=== PATIENT | female | born 2000 | race Caucasian/White ===

== ENCOUNTER 2019-02-20 12:57 | Emergency (ER) | payer MEDICAID ==
[~2019-02-20] VITALS: Ht 162.6 cm; Wt 113.6 kg
[2019-02-20 13:02] VITALS: TEMP 96.4
[2019-02-20 13:26] LABS: BASO # 0.1 (0.0-0.2); BASO % 0.6 % (0.0-2.0); EOS # 0.6 (0.0-0.7); GRAN # 10.8 (1.4-6.5); GRAN % 78.7 % (42.2-75.2); HEMATOCRIT 36.2 % (37.0-47.0); HEMOGLOBIN 11.4 g/dl (12.5-16.0); LYMPH # 1.5 (1.2-3.4); MEAN CELL VOLUME 88 fl (80.0-100.0); MEAN CORPUSCULAR HEMOGLOBIN 28 pg (27.0-31.0); MEAN CORPUSCULAR HGB CONC 32 g/dl (33.0-37.0); MONO # 0.7 (0.1-0.6); MONO % 5.2 % (1.7-9.3); PLATELET COUNT 221 K/mm3 (130-400); RED BLOOD COUNT 4.13 M/mm3 (4.10-5.30); REDCELL DISTRIBUTION WIDTH-CV 14.9 % (11.5-14.5)
[2019-02-20] MEDS ORDERED: NORCO 325 MG-51 TAB PO (13:31)
[2019-02-20 13:40] LABS: ALBUMIN 4.3 gm/dL (3.5-5.0); C-REACTIVE PROTEIN 1.2 mg/dL (0.0-0.9); CALCIUM 9.3 mg/dL (8.4-10.2); CREATININE, serum 0.71 (0.52-1.25); POTASSIUM 4.2 mmol/L (3.4-5.0); TOTAL PROTEIN 7.8 gm/dL (6.4-8.2)
[2019-02-20 14:05] LABS: COLLECTION METHOD CLEAN CATCH
[2019-02-20 14:17] LABS: MUCOUS Present /lpf; PH 7 (5-8); SQUAMOUS EPITHELIAL 0-2 /hpf; URINE APPEARANCE Hazy; URINE BACTERIA None Seen /hpf; URINE BILIRUBIN Positive (NEGATIVE); URINE BLOOD 3+ (NEGATIVE); URINE COLOR Amber; URINE GLUCOSE Negative (NEGATIVE); URINE KETONE Negative (NEGATIVE); URINE LEUKOCYTE ESTERASE Negative (NEGATIVE); URINE NITRATE Negative (NEGATIVE); URINE PROTEIN(semi-quant) 1+ (NEGATIVE); URINE RBC >50 /hpf; URINE UROBILINOGEN >=4.0 mg/dL (NEGATIVE)
[2019-02-20 14:18] LABS: TROPONIN-I < 0.012 ng/mL (0.000-0.035)
[2019-02-20 17:30] VITALS: BP 139/83; PULSE 75
== END 2019-02-20 17:45 | disposition short-term general hospital (02) ==
LOC: COL.ER 12:57
PROVIDERS: Emergency Medicine
DX: R10.13 Epigastric pain (principal); R11.10 Vomiting, unspecified; M54.5 Low back pain; Z90.89 Acquired absence of other organs
CPT/HCPCS: J1170; J2405; J2543; J2550; J7030; Q9967